=== PATIENT | male | born 1955 | race Asian ===

== ENCOUNTER 2025-04-10 22:41 | Emergency (ER) | payer MEDICARE, OTHER ==
[~2025-04-10] VITALS: Ht 167.6 cm; Wt 67.1 kg
[2025-04-10 23:09] VITALS: TEMP 97.7
[2025-04-11 02:36] VITALS: BP 150/93; PULSE 58; RESP 14; O2SAT 98
== END 2025-04-11 03:58 | disposition home or self-care (01) ==
LOC: EMS 22:44
DX: M25.512 Pain in left shoulder (principal)
CPT/HCPCS: 99283